=== PATIENT | male | born 1975 | race Caucasian/White ===

== ENCOUNTER 2024-06-15 18:39 | Emergency (ER) | payer SELFPAY ==
[2024-06-15 18:42] VITALS: BP 149/83; PULSE 107; RESP 16; TEMP 36.6; O2SAT 98; BMI 32.8
[2024-06-15 22:39] VITALS: PULSE 101; RESP 18; O2SAT 98
--- NOTE | 2024-06-15 22:46 | EDS_ITS ---
HPI History of Present Illness Chief Complaint: Sore Throat PFS PFS Medical History unable to obtain Home Medications ?Medication ?Instructions ?Recorded ?Last Taken ?Type amoxicillin 875 mg-potassium 1 tab PO BID 7 days #14 tabs 06/15/24 Unknown Rx clavulanate 125 mg tablet prednisone 20 mg tablet 20 mg PO DAILY #5 tabs 06/15/24 Unknown Rx Allergy/AdvReac Type Severity Reaction Status Date / Time No Known Allergies Allergy Verified 06/15/24 18:42 Social History Smoking Status: Unknown if ever smoked EXAM Physical Exam Const Vital Signs: 06/15/24 18:42 06/15/24 22:39 Temperature 97.9 F Temperature Source Oral Pulse Rate 107 H 101 H Respiratory Rate 16 18 Blood Pressure 149/83 H Blood Pressure Mean 105 Pulse Ox 98 98 Oxygen Delivery Method Room Air Room Air MDM MDM MDM Narrative Medical decision making narrative: HISTORY OF PRESENT ILLNESS: Patient presents with sore throat. Notes 5 days of sore throat. Complains of bilateral ear pain. Denies drooling, neck stiffness, difficulty opening the jaw. REVIEW OF SYSTEMS: Pertinent positives: Sore throat Pertinent negatives: Drooling, neck stiffness, shortness of breath, chest pain, vomiting PHYSICAL EXAM: Nursing triage notes reviewed, Vital signs reviewed Constitutional: please see mdm HENT: MMM, bilateral tonsillar erythema, healing midline, white exudates noted on tonsils. No submandibular edema or induration, uvula midline, bilateral TMs pearly leiva with no hyperemia or middle ear effusion, no mastoid tenderness, no trismus, Eyes: Pupils equal round and reactive to light, Extraocular muscles intact Neck: No stridor, no JVD, full neck ROM Lungs: Clear to auscultation, No wheezing or rales. No increased work of breathing, no conversational dyspnea, no accessory muscle use, no nasal flaring. No respiratory distress noted. The patient speaking full sentences. Heart: Regular rate and rhythm, No murmurs, No rubs and No gallops, 2+ distal pulses (radial, femoral, posterior tibial) in all extremities Skin: No rash or lesions noted MEDICAL DECISION MAKING: Chief Complaint: Sore throat External records reviewed: No recent imaging Factors affecting care: None noted in the chart Social determinants of health: None reported by patient History obtained from others: None Consults: None ALL IMAGES (IF OBTAINED) HAVE BEEN PERSONALLY REVIEWED AND INTERPRETED BY MYSELF. [facility] Narrative: The patient was hemodynamically stable, afebrile, nontoxic-appearing. She is speaking in full sentences. There is no signs of airway compromise at this time. I considered the following differential diagnosis: Bacterial versus viral pharyngitis, RPA, ARMHOLE BASTER JUMPBASTING, Lemierre's syndrome, Talon's angina. There is no clinical evidence of RPA, ARMHOLE BASTER JUMPBASTING, Lemierre's syndrome along with and at this time. Exam consistent with bacterial pharyngitis. Patient will be given prophylactic antibiotics (Augmentin). He is also prescribed prednisone. Can take Tylenol ibuprofen the patient was given strict return precautions and follow-up instructions. The patient and/or family, caregivers express understanding. The patient and/or family, caregivers agrees with the plan. Total critical care time today provided was at least 0 minutes. This excludes separately billable procedures. Critical care time if documented is secondary to the patient having high probability of clinically significant/life threatening deterioration in the patient's condition which required my urgent intervention. Shared decision making: I will have a discussion with the patient and or visitors regarding risk/benefits of further testing or admission. They will be made aware of of the risk/benefits inherent in this decision they will be given the opportunity to voice understanding. Impression: 1. Sore throat 2. Bacterial pharyngitis Disposition: Discharge home This note was generated with [employer] dictation software. It may contain incorrect words, spelling, and punctuation that were not noted in review of the chart prior to signing. Discharge Plan Triage Chief Complaint: Sore Throat ED Provider: Angel Rodriguez Dx/Rx/DC Orders Instructions: ED Pharyngitis, Strep (Confirmed) Prescriptions: New amoxicillin-pot clavulanate 875-125 mg tablet 1 tab PO BID 7 Days Qty: 14 0RF prednisone 20 mg tablet 20 mg PO DAILY Qty: 5 0RF Stand Alone Forms: ED Work / School Excuse Primary Care Provider: NOT,DEFINED Referrals: Ector Guevara MD [Med Staff - Law Firm Partner] - Activity Restrictions/Additional Instructions: Thank you for trusting us with your care today! Your exam is consistent with a bacterial pharyngitis. This will require antimicrobial therapy. Please take antibiotics as prescribed until course complete Please take Tylenol (2 pills, 650 mg), ibuprofen (2 pills, 400 mg) every 6 hours as needed for pain and fever control. Please take steroids as prescribed until course is complete. Please return to the emergency department if your symptoms change or worsen. Please follow with your primary care physician for further outpatient evaluation and management. Print Language: Khmer Disposition Disposition: Home, Self Care
[2024-06-15] MEDS: Amox/Clavulanate 875 MG Tablet PO (22:56)
[2024-06-15] MEDS: Ibuprofen 200 MG Tablet 400 MG PO (22:58)
== END 2024-06-15 23:28 | disposition home or self-care (01) ==
LOC: ED 23:10
PROVIDERS: Emergency Provider Emergency Medicine; Visit Provider Emergency Medicine
DX: J02.8 Acute pharyngitis due to other specified organisms (principal)
CPT/HCPCS: 99283

== ENCOUNTER 2024-09-02 05:32 | Emergency (ER) | payer SELFPAY ==
[2024-09-02] VITALS (7 sets, daily range): BP systolic 124–144; BP diastolic 88–98; PULSE 63–82; RESP 16–22; TEMP 36.4; O2SAT 96–98; BMI 29.2
--- NOTE | 2024-09-02 05:42 | EKG12_ITS ---
Test Reason : DYSRHYTHMIA Blood Pressure : */* mmHG Vent. Rate : 80 BPM Atrial Rate : 80 BPM P-R Int : 146 ms QRS Dur : 86 ms QT Int : 380 ms P-R-T Axes : 36 8 39 degrees QTcB Int : 438 ms Normal sinus rhythm Normal ECG Confirmed by Julio Hendrickson ([id number]), assistant film editor FLORI MENDOZA ([id number]) on 09/05/2024 6:47:21 AM Referred By: TB Confirmed By: Julio Hendrickson
[2024-09-02] MEDS: 0.9% Normal Saline (1000mL) 1,000 ML 999 ML IV (05:57)
--- NOTE | 2024-09-02 05:58 | EX.ED.DYSGE1 ---
HPI History of Present Illness Chief Complaint: General Illness Narrative Narrative: Patient is a 49-year-old male with no known significant past medical history however he does not follow with a doctor in regular basis who presented to the emergency department with a chief complaint of feeling he is having panic attack. Patient states that he woke from sleep and noted that he had a feeling of panic attack and left arm pain/tightness. He states that he does smoke tobacco denies any drug use. States that he drinks socially. Patient denies any history of blood clots denies any history of recent travel. PFSH PFS Medical History no medical history Home Medications ?Medication ?Instructions ?Recorded ?Last Taken ?Type NK 09/02/24 Unknown History Allergy/AdvReac Type Severity Reaction Status Date / Time No Known Allergies Allergy Verified 09/02/24 05:36 Social History Smoking Status: Current every day smoker tobacco type: cigarettes ROS ROS ED ROS Narrative Constitutional: Denies fevers, chills, headaches, lightness, dizziness Eyes: Denies change in vision double vision blurry vision Cardiovascular: Complains of chest discomfort rating to his left arm as noted above denies palpitations Respiratory: Denies coughing wheezing shortness of breath Abdomen: Denies abdominal pain nausea vomit diarrhea : Denies urinary symptoms Neurological: Denies numbness, weakness, tingling Musculoskeletal: Denies back pain Skin: Denies any rashes or lesions EXAM Physical Exam Narrative Exam Narrative: General: Patient was lying in bed rest comfortably did not appear to be acute distress Head: Atraumatic, normocephalic Eyes: PERRL bilateral, EOMI bilateral, no conjunctival injection noted Neck: Soft, supple and trachea midline Cardiovascular: Regular rate and rhythm no murmurs gallops rubs noted Respiratory: Clear to auscultation bilaterally Abdomen: Soft, nondistended, tender to palpation Extremities: +5/5 strength noted in the bilateral upper and lower extremities, radial pulses +2/4 in the bilateral upper extremities Neurological: Patient follow commands and that he was at [facility] year is 2024 Skin: Warm, dry, intact no rashes or lesions noted Const Vital Signs: 09/02/24 05:33 09/02/24 05:35 09/02/24 05:57 Temperature 97.6 F L Temperature Source Oral Pulse Rate 82 Respiratory Rate 18 Respiratory Effort Normal Non-Labored Respiratory Pattern Normal Blood Pressure 144/98 H Blood Pressure Mean 113 Pulse Ox 96 97 Oxygen Delivery Method Room Air Room Air 09/02/24 06:32 09/02/24 07:00 Temperature Temperature Source Pulse Rate 75 63 Respiratory Rate 16 16 Respiratory Effort Respiratory Pattern Blood Pressure 124/89 H 130/88 H Blood Pressure Mean 100 102 Pulse Ox 96 98 Oxygen Delivery Method Room Air MDM MDM MDM Narrative Medical decision making narrative: Patient is a 49-year-old male who presented to the emergency department chief complaint of thinking he is having a panic attack. On the differential diagnosis includes but not limited to ACS, hyperthyroidism, anxiety, panic attack. Once workup is obtained reviewed he will be reevaluated. Patient CBC was reviewed and showed a white blood count of 9.1, hemoglobin 16.8, plate count was noted be 202. Patient sodium was 139, potassium normal 3.7, creatinine was 1.04. Patient's troponin was 12 with a TSH normal at 1.15 and free T4 and T3 normal at 1.20 and 3.7 respectively. Patient's chest x-ray was reviewed and showed no acute cardiopulmonary processes as reviewed by myself and by radiology. Patient's EKG was reviewed and showed sinus rhythm with a rate of 80 bpm. Nursing staff notified me that his significant other at bedside states that he recently relapsed with meth and has been recently talking a lot about killing himself. She states that he has had a plan of going to buy a gun after saving up money to kill himself. She also states that he is hearing voices. I went back in and discussed this with her at bedside and she states that she is highly concerned that he will attempt to kill himself as he has been talking about this more more lately. When the patient returned from chest x-ray I asked him to further elaborate about his confusion and he could not do so he states that his thoughts are not normal and would not elaborate any further. Patient denied hearing any voices. I did notify him that after his workup is obtained we will have social work come discussed with him in regards to his thoughts patient will be pink slipped. I did discuss the results with the patient and notified him that he needs to urinate for us to send this down before social work can come see him. He was notified that he is pink slipped he is agreeable to this plan. Patient case will be signed out to oncoming provider to make ultimate disposition see their note for further details as well as follow-up on pending delta troponin. Lab Data Labs: Laboratory Results - last 24 hr 09/02/24 05:43 WBC 9.1 RBC 5.62 Hgb 16.8 H Hct 49.7 MCV 88.4 MCH 29.9 MCHC 33.8 RDW Std Deviation 43.1 RDW Coeff of Tiffanie 13.3 Plt Count 202 MPV 11.3 Immature Gran % (Auto) 0.700 Neut % (Auto) 59.8 Lymph % (Auto) 28.6 [place] % (Auto) 7.0 Eos % (Auto) 3.1 Baso % (Auto) 0.8 Absolute Neuts (auto) 5.4 Absolute Lymphs (auto) 2.59 Nucleated RBC % 0 Sodium 139 Potassium 3.7 Chloride 103 Carbon Dioxide 24.9 Anion Gap 11 BUN 7 Creatinine 1.04 Estim Creat Clear Calc 112.47 Est GFR (MDRD) Non-Af 89 BUN/Creatinine Ratio 6.5 L Glucose 160 H Calcium 9.2 Troponin T High Sens 12 TSH 1.150 Free T4 1.20 Free T3 pg/dL 3.7 Radiography Diagnostic Testing: Clinical Impression(s) from Imaging Studies Chest X-Ray 09/02/24 06:20 IMPRESSION: No evidence of acute disease. Reading Location: [facility] Discharge Plan Triage Chief Complaint: General Illness ED Provider: Eduin Torres Dx/Rx/DC Orders Prescriptions: No Action NK Primary Care Provider: Care Physician,No Primary Referrals: Care Physician,No Primary [Primary Care Provider] - Print Language: Armenian
[2024-09-02 06:01] LABS: Absolute Lymphocyte Count 2.59 X10^3/uL (0.83-4.51); Absolute Neutrophil Count 5.4 X10^3/uL (2.0-7.7); Basophil# 0.07 X10^3/uL; Basophil% 0.8 % (0-1); Eosinophil# 0.28 X10^3/uL; Eosinophils% 3.1 % (0-5); Hematocrit 49.7 % (40-54); Hemoglobin 16.8 g/dL (13.0-16.5); Lymphocyte # 2.59 X10^3/ul (0.83-4.51); Lymphocyte % 28.6 % (19-41); Mean Corp Hgb Conc 33.8 g/dL (32-36); Mean Corpuscular Hgb 29.9 pg (27.0-32.0); Mean Corpuscular Volume 88.4 fL (80-94); Mean Platelet Vol. 11.3 fl (6.2-12.0); Monocyte# 0.63 X10^3/uL; NRBC Flagged by Analyzer 0 % (0-5); Neutrophil # 5.42 X10^3/uL (2.7-7.7); Neutrophil % 59.8 % (47-70); Platelet Count 202 K/mm3 (150-450); RBC Distribution Width CV 13.3 % (11.6-14.6); RBC Distribution Width SD 43.1 fl (35.1-43.9); Red Blood Count 5.62 M/mm3 (4.6-6.2); White Blood Count 9.1 K/mm3 (4.4-11.0)
--- NOTE | 2024-09-02 06:20 | RAD_ITS ---
PROCEDURE: CHEST PA AND LATERAL 09/02/2024 REASON FOR EXAM: CHEST PAIN TECHNIQUE: Frontal and lateral views of the chest. COMPARISON: None available FINDINGS: The lungs appear clear. The cardiac and mediastinal contours appear within limits. The visualized osseous structures appear within limits. RAD/Chest PA and Lateral IMPRESSION: No evidence of acute disease. Reading Location: [id number]
--- NOTE | 2024-09-02 06:27 | ED.RN ---
This RN went into the patient's room in order to complete this RN's assessment. The patient explained that he woke up with confusion when this RN asked what he meant by this, the patient's s/o answered by stating that the patient has been very suicidal recently. Stating that he has voices that tell him to kill himself. The patient denied all of this to this RN. MD notified. Then when the patient went to [facility], the patient's s/o called this RN into the room. The patient's s/o explained that the patient has recently started using methamphetamines again and has been going through some difficult personal situations. At this time, Dr. Torres came into the room and joined the conversation, this RN informed Dr. Torres to the rest of the patient's s/o and my conversation. The patient's s/o continued on to say that the patient had mentioned buying a gun and blowing his brains out.
[2024-09-02 06:33] LABS: Anion Gap 11 (5-15); BUN 7 mg/dL (4-19); BUN/Creat Ratio 6.5 RATIO (10-20); Calcium,Total 9.2 mg/dL (7.6-11.0); Carbon Dioxide 24.9 mmol/L (21.0-32.0); Chloride 103 mmol/L (98-108); Creatinine, Serum 1.04 mg/dL (0.70-1.20); EST Glomerular Filtration Rate 89 (>60); Estimated Creatinine Clearance 112.47 ml/min (50-250); Free T3 3.7 pg/mL (2.18-3.98); Glucose 160 mg/dL (70-99); Potassium 3.7 mmol/L (3.3-5.1); Sodium Level 139 mmol/L (133-145); Troponin T High Sensitivity 12 ng/L (<=22)
--- NOTE | 2024-09-02 07:46 | PCA ---
CALLED [facility] AT [phone] AND FAXED EVERYTHING OVER. THEY WILL SEND SOMEONE OUT TO EVALUATE THE PATIENT.
[2024-09-02 08:24] LABS: Troponin T High Sens 2 HR 13 ng/L (<=22)
[2024-09-02 09:08] LABS: Amphetamine Urine NEGATIVE (<1000 ng/mL); Barbiturate Urine NEGATIVE (< 200 ng/mL); Benzodiazepine Urine NEGATIVE (< 200 ng/mL); Buprenorphine Urine NEGATIVE (< 200 ng/mL); Cocaine Urine NEGATIVE (< 300 ng/mL); Fentanyl, Urine NEGATIVE; Methadone Urine NEGATIVE (< 300 ng/mL); Opiates Urine NEGATIVE (< 300 ng/mL); Oxycodone, Urine NEGATIVE (< 100 ng/mL); PCP Urine NEGATIVE (< 25 ng/mL); THC Urine NEGATIVE (< 50 ng/mL)
--- NOTE | 2024-09-02 09:30 | PCA ---
[facility] HAS FUNDING AVAILABLE SO THEY WILL TRY TO PLACE AT [facility] OR [facility]. LEFT @ [phone]. WILL KEEP US POSTED.
--- NOTE | 2024-09-02 11:32 | PCA ---
ACCEPTED AT [facility] @ [address]. [address] R[address] IS SET UP AT 1130-[id number] IS [phone]
--- NOTE | 2024-09-02 13:12 | PCA ---
PHYSICIANS JUST CALLED @ 1310 AND PUSHED BACK THE RIDE ORIGINALLY SCHEDULED FOR [id number] TO [phone]. SAID THEY ARE SENDING A [facility]
--- NOTE | 2024-09-02 14:42 | ED.RN ---
Report called to [facility].
== END 2024-09-02 14:30 ==
PROVIDERS: Emergency Provider Emergency Medicine; Visit Provider Emergency Medicine
DX: F41.0 Panic disorder [episodic paroxysmal anxiety] (principal); F17.210 Nicotine dependence, cigarettes, uncomplicated; R41.0 Disorientation, unspecified
CPT/HCPCS: 71046; 80048; 80307; 84439; 84443; 84481; 84484; 85025; 93005; 96360; 99284